=== PATIENT | male | born 1985 | race Caucasian/White ===

== ENCOUNTER 2017-12-14 02:27 | Emergency (ER) | payer OTHER ==
[~2017-12-14] VITALS: Ht 167.6 cm; Wt 75.5 kg
[2017-12-14 02:29] VITALS: TEMP 98.3
[2017-12-14] MEDS ORDERED: CEPHALEXIN500 M1 PO (03:29)
[2017-12-14 03:57] VITALS: BP 112/75; PULSE 101
== END 2017-12-14 03:57 | disposition home or self-care (01) ==
LOC: COL.ER 02:27
DX: S80.852A Superficial foreign body, left lower leg, initial encounter (principal); W22.8XXA Striking against or struck by other objects, initial encounter; Y92.410 Unspecified street and highway as the place of occurrence of the external cause